=== PATIENT | female | born 1975 | race Asian ===

== ENCOUNTER 2022-08-28 13:47 | Emergency (ER) | payer OTHER ==
[2022-08-28 13:59] VITALS: BP 138/72; PULSE 84; RESP 18; TEMP 98.2; BMI 24.7
== END 2022-08-28 14:36 | disposition home or self-care (01) ==
LOC: JERFT 13:47 → JER 13:47 → JERFT 14:36
DX: R22.31 Localized swelling, mass and lump, right upper limb (principal); T78.40XA Allergy, unspecified, initial encounter
CPT/HCPCS: 99283-25